=== PATIENT | male | born 1990 | race Caucasian/White ===

== ENCOUNTER 2017-01-23 10:32 | Emergency (ER) | payer OTHER ==
[~2017-01-23] VITALS: Ht 182.9 cm; Wt 79.5 kg
[2017-01-23 10:23] VITALS: BP 149/59; PULSE 114; RESP 16; O2SAT 100
--- NOTE | 2017-01-23 10:35 | ED.REPORT ---
HPI-Seizure Date of Service Jan 23, 2017 ED Provider: Brian Heard MD Patient is a 26 year old male with a history of migraines who presents to the ED via EMS after seizure like activity around 0900. He complains of a headache. Patient denies fever, insomnia, abdominal pain, or other symptoms at this time. The patient reports that he all he remembers is that he was at work when he began "tensing up" and then fell backwards. Per EMS, the patient was post-ictal in the field and there was witness of the episode. Patient denies any history of previous seizures. Nursing Notes Stated Complaint: GROUND LEVEL FALL Chief Complaint: Seizure Nursing Notes Reviewed: Yes Allergies: Coded Allergies: No Known Allergies (Unverified , 01/23/17) General Time Seen by Provider: 10:40 Chief Complaint Chief Complaint: Abnormal movements Hx Obtained From: Patient Arrived By: Ambulance Onset Occurred: 1 - 4 hours ago Symptom Duration: 1 - 15 minutes Location: : Head Quality: Painful Severity: Current: Moderate Recent Healthcare: No recent hospitalization Similar Sx Previous: No Past Medical History Past Medical History migraines Social History Alcohol Use: "Social" Ambulatory Status Independent Review of Systems Constitutional: Denies: Chills, Fever Respiratory: Denies: Non-productive cough, Shortness of breath Neurologic: Reports: Headache, Seizure (like activity) Complete sys rev & neg: except as marked. GI: Denies: Abdominal pain Psychiatric: Denies: Insomnia Physical Exam Initial Vital Signs Vital Signs (First) Date Time Temp Pulse Resp B/P Pulse Ox O2 Delivery O2 Flow Rate FiO2 01/23/17 10:23 36.7 114 16 149/59 100 Room Air Initial VS: Reviewed General/Constitutional: Awake, Alert Neck: Atraumatic, Supple Respiratory / Chest: Atraumatic, Breath sounds NL, Breath sounds = bilat, No respiratory distress Cardiovascular: Heart rate NL, Regular rhythm, Heart sounds NL, No murmurs Neurologic: Oriented X3, Speech NL, CN II - XII intact Head / Eyes: Normocephalic, PERRL, EOMI superficial abrasion on the left posterior scalp no laceration ENT: Atraumatic, Airway patent, Mucous membranes moist Abdomen: Atraumatic, Soft, Non-tender Upper Extremity / MS: Atraumatic, Full range of motion Lower Extremity / Pelvis / MS: Atraumatic, No edema Skin: Atraumatic, Color NL, No rash, Warm, Dry Psychiatric: Affect NL, Mood NL Interpretation & Diagnostics Lab Results Interpretation Result Diagram: 01/23/17 1047 01/23/17 1047 Test 01/23/17 10:47 01/23/17 11:55 White Blood Count 10.0th/mm3 (3.8-10.1) Red Blood Count 4.38mil/mm3 (4.40-5.80) Hemoglobin 13.9g/dL (13.8-17.2) Hematocrit 38.3% (41.0-50.0) Mean Corpuscular Volume 87.4fL (81-100) Mean Corpuscular Hemoglobin 31.7pg (27.0-35.0) Mean Corpuscular Hemoglobin Concent 36.3% (32.0-37.0) Red Cell Distribution Width 11.6% (12.3-15.4) Platelet Count 300bil/L (150-400) Neutrophils (%) (Auto) 55.6% (40-74) Lymphocytes (%) (Auto) 32.7% (14-46) Monocytes (%) (Auto) 8.1% (4-12) Eosinophils (%) (Auto) 2.8% (0-5) Basophils (%) (Auto) 0.5% (0-3) Sodium Level 137mEq/L (134-144) Potassium Level 3.5mEq/L (3.5-5.2) Chloride Level 99mEq/L (97-108) Carbon Dioxide Level 21mmol/L (18-29) Blood Urea Nitrogen 16mg/dL (6-20) Creatinine 1.03mg/dL (0.76-1.27) Estimat Glomerular Filtration Rate 94mL/min (>59) Glucose Level 130mg/dL (60-99) Calcium Level 8.8mg/dL (8.5-10.1) Total Bilirubin 0.5mg/dL (0.0-1.2) Aspartate Amino Transf (AST/SGOT) 18U/L (0-50) Alanine Aminotransferase (ALT/SGPT) 11U/L (0-44) Alkaline Phosphatase 51U/L (25-150) Total Protein 6.8g/dL (6.4-8.4) Albumin 4.5g/dL (3.4-5.0) Hold Urine Received (Received) ECG Interpretation ECG Interpretation: sinus tachycardia, rate [address], T changes Time: 11:28 Interpreted by: ED physician CT Head Interpretation IMPRESSION: 1. No acute intracranial findings. 2. Trace right maxillary sinus free fluid. Dictated by: Kanwal Golden M.D. on 01/23/2017 at 11:28 Approved by: Kanwal Golden M.D. on 01/23/2017 at 11:31 Interpretation / Wet Read by: Interpret - Radiologist Re-Eval/Medical Decision Med Decision/Clinical Course 26-year-old male history of chronic migraines presenting with witnessed seizure. Tonic-clonic activity per coworkers. CT head and labs unremarkable here. I spoke with the patient's neurologist Dr. Carey who recommended discharging home with no seizure medications. She will schedule an EEG and MRI as an outpatient. No driving. Follow-up with primary doctor as well. Re-Evaluation/Progress : Time of Eval: 13:53 Re-Evaluation/Progress Note: Discussed results and plan for discharge. Patient agrees to plan. All questions were addressed. Consultation : Referral / Consult Name: Holly Godwin MD Consulted With: Neurology Call Returned at: 12:41 Reel Slitter: Will see in office Note: Consult with Dr. Godwin, who recommends discharging the patient without medications. She will order an outpatient EEG and MRI. Will see patient this April. Counseled Regarding: Diagnosis, Lab results, Need for follow-up, When/why to return to ED Discharge & Departure Impression: Primary Impression: Seizure Disposition: Home Discharge Condition All VS Reviewed: Yes Condition: Stable Patient Instructions: New-Onset Seizure in Adults (ED) Additional Instructions: Your head CT was normal and reassuring. It is likely that you had a seizure. Do not drive until you follow up with the neurologist. Follow up with the referred neurologist in April. She has ordered an outpatient EEG and MRI. If you have recurring seizure activity, call Dr. Godwin's office. Return to the emergency department if you develop any new or concerning symptoms. Referrals: Brennen Jensen DO (PCP) Holly Godwin MD Scribe Attestation Portions of this note were transcribed by Mitzi Guerrero. I, Dr. Heard personally performed the history, physical exam and medical decision-making; I reviewed and confirmed the accuracy of the information in the transcribed note. Signed by: Marvin Woodson, 01/23/17. copies to: Holly Godwin MD; Brennen Jensen Ben M MD Jan 23, 2017 10:35 Eneida Guerrero Jan 23, 2017 10:47
[2017-01-23] MEDS ORDERED: 0.9% Sodium Chloride 1,000 ML IV ONE (10:47)
[2017-01-23 11:02] LABS: BASOPHILS % (AUTO) 0.5 % (0-3); EOSINOPHILS % (AUTO) 2.8 % (0-5); MONOCYTES % (AUTO) 8.1 % (4-12); Mean Corpuscular Hemoglobin 31.7 pg (27.0-35.0); Mean Corpuscular Volume 87.4 fL (81-100); NEUTROPHILS % (AUTO) 55.6 % (40-74); Platelet Count 300 bil/L (150-400)
--- NOTE | 2017-01-23 11:33 | DRSVH ---
PROCEDURE: CT BRAIN WITHOUT CONTRAST ([id number]) INDICATIONS: seizure TECHNIQUE: Noncontrast 4.5 mm thick angled axial sections acquired from the foramen magnum to the vertex, with c oronal reformats. COMPARISON: [facility], CT, BRAIN W/O CONTRAST, 07/13/2007, 17:53. FINDINGS: Image quality: Excellent. CSF spaces: Basal cisterns are patent. No extra-axial fluid collections. Ventricles are normal in size and shape. Brain: No midline shift. No intracranial masses or hemorrhage. Wang-white matter interface is norm al. Skull and face: Calvarium and visualized facial bones are intact, without suspicious lesions. Sinuses: Trace fluid is partially visualized within the right maxillary sinus. Visualized sinuses an d mastoids are otherwise clear. IMPRESSION: 1. No acute intracranial findings. 2. Trace right maxillary sinus free fluid. Dictated by: Kanwal Golden M.D. on 01/23/2017 at 11:28 Approved by: Kanwal Golden M.D. on 01/23/2017 at 11:31
[2017-01-23 12:36] VITALS: BP 127/74; PULSE 91; RESP 14; O2SAT 100
[2017-01-23 13:54] VITALS: BP 129/79; PULSE 91; RESP 18; O2SAT 98
== END 2017-01-23 13:58 | disposition home or self-care (01) ==
LOC: EDBD 10:32 → SED 10:32
DX: R56.9 Unspecified convulsions (principal)
CPT/HCPCS: 36415; 70450; 80053; 81002; 82948; 85025; 93005; 96360; 99285; J7030